=== PATIENT | female | born 1955 | race Two or more races ===

== ENCOUNTER → 2018-01-07 | Outpatient (CLI) | payer MEDICARE, MEDICAID ==
--- NOTE | 2018-01-07 16:46 | RAD ---
Examination: Ankle brachial index HISTORY: History of left leg pain COMPARISON: None available FINDINGS: The right brachial artery pressure is 119 mmg. The left brachial artery pressure is 105 mmHg. The right lower extremity arterial pressure is 124 mmHg , the left lower extremity arterial pressures 134 mmHg. The right ankle-brachial index is 1.0. The left ankle brachial index is 1.1. IMPRESSION: Normal ankle brachial indices. Electronically signed by: Cristian Gustafson MD (01/07/2018 4:42 PM) [id number]
== END | disposition home or self-care (01) ==
LOC: US 13:00
PROVIDERS: ATTEND Physician Assistant Medical
DX: M79.605 Pain in left leg (principal)
CPT/HCPCS: 93922

== ENCOUNTER → 2020-04-21 | Outpatient (CLI) | payer MEDICARE, MEDICAID ==
--- NOTE | 2020-04-21 14:54 | RAD ---
Examination: 1. Right wrist 3 views. 2. AP standing bilateral knees 3. Bilateral knees 2 views each INDICATION: Bilateral knee pain, right wrist pain. FINDINGS: Right wrist: 3 views of the right wrist show narrowing of the radiocarpal joint with dbce-zn-eonj contact and deformity to the radial metaphysis, suggesting an old, healed fracture. The ulnar styloid process is truncated and replaced by a circumscribed ossific density. Soft tissues unremarkable. Bilateral AP standing knees: There is near mbgw-yd-dsie contact between the tibia and femur in the medial compartment with osteophytic spurring on the medial femoral condyles present bilaterally. There is slight lateral listhesis of the proximal tibias relative to the distal femurs and mild varus deformity. Soft tissues show obesity but otherwise are unremarkable. Bilateral knees 2 views each: [place] and lateral views of the left knee show bulky osteophytic spurring on the medial femoral head and marked joint space narrowing both in the medial and patellofemoral compartments. There is evidence of an ossific density in the dorsal knee joint space that is equivocal for a loose body. No significant joint effusion. [place] and lateral views of the right knee show bulky osteophytic spurring on the medial femoral condyle and in the superior pole patella. No joint effusion or loose body suggested. IMPRESSION: 1. 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 2. Advanced multicompartmental degenerative changes in both knees affecting the medial and patellofemoral compartments the greatest extent with mild varus deformity bilaterally. Electronically signed by: Kirby Saucedo MD (04/21/2020 2:51 PM) [id number]
--- NOTE | 2020-04-21 14:54 | RAD ---
Examination: 1. Right wrist 3 views. 2. AP standing bilateral knees 3. Bilateral knees 2 views each INDICATION: Bilateral knee pain, right wrist pain. FINDINGS: Right wrist: 3 views of the right wrist show narrowing of the radiocarpal joint with leum-ib-jfiu contact and deformity to the radial metaphysis, suggesting an old, healed fracture. The ulnar styloid process is truncated and replaced by a circumscribed ossific density. Soft tissues unremarkable. Bilateral AP standing knees: There is near sznp-rq-qtlq contact between the tibia and femur in the medial compartment with osteophytic spurring on the medial femoral condyles present bilaterally. There is slight lateral listhesis of the proximal tibias relative to the distal femurs and mild varus deformity. Soft tissues show obesity but otherwise are unremarkable. Bilateral knees 2 views each: [place] and lateral views of the left knee show bulky osteophytic spurring on the medial femoral head and marked joint space narrowing both in the medial and patellofemoral compartments. There is evidence of an ossific density in the dorsal knee joint space that is equivocal for a loose body. No significant joint effusion. [place] and lateral views of the right knee show bulky osteophytic spurring on the medial femoral condyle and in the superior pole patella. No joint effusion or loose body suggested. IMPRESSION: 1. 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 2. Advanced multicompartmental degenerative changes in both knees affecting the medial and patellofemoral compartments the greatest extent with mild varus deformity bilaterally. Electronically signed by: Kirby Saucedo MD (04/21/2020 2:51 PM) [id number]
--- NOTE | 2020-04-21 14:54 | RAD ---
Examination: 1. Right wrist 3 views. 2. AP standing bilateral knees 3. Bilateral knees 2 views each INDICATION: Bilateral knee pain, right wrist pain. FINDINGS: Right wrist: 3 views of the right wrist show narrowing of the radiocarpal joint with zkpp-fm-wxlj contact and deformity to the radial metaphysis, suggesting an old, healed fracture. The ulnar styloid process is truncated and replaced by a circumscribed ossific density. Soft tissues unremarkable. Bilateral AP standing knees: There is near zgdl-ya-jmdu contact between the tibia and femur in the medial compartment with osteophytic spurring on the medial femoral condyles present bilaterally. There is slight lateral listhesis of the proximal tibias relative to the distal femurs and mild varus deformity. Soft tissues show obesity but otherwise are unremarkable. Bilateral knees 2 views each: [place] and lateral views of the left knee show bulky osteophytic spurring on the medial femoral head and marked joint space narrowing both in the medial and patellofemoral compartments. There is evidence of an ossific density in the dorsal knee joint space that is equivocal for a loose body. No significant joint effusion. [place] and lateral views of the right knee show bulky osteophytic spurring on the medial femoral condyle and in the superior pole patella. No joint effusion or loose body suggested. IMPRESSION: 1. 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 2. Advanced multicompartmental degenerative changes in both knees affecting the medial and patellofemoral compartments the greatest extent with mild varus deformity bilaterally. Electronically signed by: Kirby Saucedo MD (04/21/2020 2:51 PM) [id number]
== END | disposition home or self-care (01) ==
LOC: DXRAD 13:27
PROVIDERS: ATTEND Orthopaedic Surgery
DX: M17.0 Bilateral primary osteoarthritis of knee (principal); M21.831 Other specified acquired deformities of right forearm; M25.731 Osteophyte, right wrist; M77.8 Other enthesopathies, not elsewhere classified
CPT/HCPCS: 73110; 73560; 73565

== ENCOUNTER 2020-07-11 13:29 | Emergency (ER) | payer MEDICARE, MEDICAID ==
[~2020-07-11] VITALS: Ht 154.9 cm; Wt 154.0 kg
[2020-07-11 13:39] VITALS: BP 145/87
--- NOTE | 2020-07-11 13:44 | PHYS DOC ---
Adult General Chief Complaint Chief Complaint: UPPER EXTREMITY PAIN HPI HPI Patient is a 64-year-old female patient who presents to the ED today complaining of mild intermittent left shoulder pain that began on giving after she fell down one step. Patient denies any loss of consciousness. Denies hitting her head on the ground. She states the pain is throbbing. She states the pain is worse when she is laying on her shoulder at night. Denies any chest pain or shortness of breath. She states she was planning to follow-up with her orthopedic doctor but did not have any appointment right now. (TAHMINA JIANG APRN) Review of Systems Review of Systems Constitutional: Denies fever or chills [] Musculoskeletal: Reports left shoulder pain Integument: Denies rash or skin lesions [] Neurologic: Denies headache, focal weakness or sensory changes [] All other systems were reviewed and found to be within normal limits, except as documented in this note. (TAHMINA JIANG APRN) Allergies Allergies Allergies Coded Allergies Type Severity Reaction Last Updated Verified codeine Allergy Unknown 07/11/20 Yes (TAHMINA JIANG APRN) Physical Exam Physical Exam Constitutional: Well developed, well nourished, no acute distress, non-toxic appearance. [] Skin: Warm, dry, no erythema, no rash. [] Back: No tenderness, no CVA tenderness. [] Extremities: Left shoulder with no obvious deformity, no ecchymosis, full range of motion to the left shoulder. No tenderness on exam. Adequate radial, medial, ulnar sensation. Adequate abduction and abduction of the left upper extremity. +2 left radial pulse. Cap refill less than 2 seconds in left fingers Neurologic: Alert and oriented X 3, normal motor function, normal sensory function, no focal deficits noted. [] Psychologic: Affect normal, judgement normal, mood normal. [] (TAHMINA JIANG APRN) EKG EKG [] (TAHMINA JIANG APRN) Radiology/Procedures Radiology/Procedures []PROCEDURE: SHOULDER 2+V LEFT EXAM: 3 Views Left Shoulder DATE: 07/11/2020 1:40 PM INDICATION: Reason: fell pain / Spl. Instructions: / History: COMPARISON: No Prior FINDINGS: There is no evidence for acute fracture or dislocation. AC joint is congruent. Mild left AC joint degenerative changes are seen. Small glenoid rim osteophytes are also seen. Humeral head is not high riding. IMPRESSION: 1. No acute fracture or dislocation. 2. Mild AC joint and glenohumeral joint degenerative change. Electronically signed by: Jake Lazcano MD (07/11/2020 1:54 PM) [facility] DICTATED AND SIGNED BY: JAKE LAZCANO MD DATE: 07/11/20 1354 CC: [facility]; TAHMINA JIANG APRN; LIZZY JAIME ~MTH0 0 (TAHMINA JIANG APRN) Heart Score Risk Factors: Risk Factors: DM, Current or recent (<one month) smoker, HTN, HLP, family history of CAD, obesity. Risk Scores: Risk Factors: DM, Current or recent (<one month) smoker, HTN, HLP, family history of CAD, obesity. (TAHMINA JIANG APRN) Course & Med Decision Making Course & Med Decision Making Pertinent Labs and Imaging studies reviewed. (See chart for details) This is a 64-year-old female patient presenting to the ED today with left shoulder pain after falling on [place]. Patient x-rays interpreted by radiologist are negative for any acute findings, noted for DJD. Ice elevation encouraged. Follow-up with orthopedic doctor in the next 1 to 2 weeks. (TAHMINA JIANG APRN) Course & Med Decision Making The patient was seen and interviewed as well as examined at the bedside. The chart was reviewed. The case was discussed. Agree with the plan of care. Patient awake and alert on my assessment. No respiratory distress. Neurovascularly intact. (SHAW GUTIÉRREZ MD) Dragon Disclaimer Dragon Disclaimer This electronic medical record was generated, in whole or in part, using a voice recognition dictation system. (TAHMINA JIANG APRN) Departure Departure: Impression: Primary Impression: Fall down steps Additional Impression: Contusion of left shoulder Disposition: 01 DC HOME SELF CARE/HOMELESS Condition: STABLE Referrals: LIZZY JAIME (PCP) NELLIE JOHNSON MD follow up in one week Patient Instructions: Contusion, [id number]-[id number] Additional Instructions: You were evaluated in the emergency room for left shoulder pain, your left shoulder x-rays were negative for any acute findings, you were noted for arthritis in the left shoulder. To ice and elevate the extremity. Take the prescribed medication as ordered. Follow-up with the orthopedic doctor in the next 1 to 2 weeks Scripts Diclofenac Sodium (VOLTAREN) 100 Gm Gel..gram. 1 GM TP QID for pain for 30 Days, #1 EACH 0 Refills apply to affected area(s) Prov: TAHMINA JIANG KITA 07/11/20 Methylprednisolone (MEDROL) 4 Mg Tab.ds.pk 1 PKG PO UD, #1 PKG Prov: TAHMINA JIANG KITA 07/11/20 Problem Qualifiers Primary Impression: Fall down steps Encounter type: initial encounter Qualified Codes: W10.8XXA - Fall (on) (from) other stairs and steps, initial encounter Additional Impression: Contusion of left shoulder Encounter type: initial encounter Qualified Codes: S40.012A - Contusion of left shoulder, initial encounter GARDENIATAHMINA HOLDEN KITA Jul 11, 2020 13:44 SHAW GUTIÉRREZ MD Jul 11, 2020 14:09
--- NOTE | 2020-07-11 13:57 | RAD ---
EXAM: 3 Views Left Shoulder DATE: 07/11/2020 1:40 PM INDICATION: Reason: fell pain / Spl. Instructions: / History: COMPARISON: No Prior FINDINGS: There is no evidence for acute fracture or dislocation. AC joint is congruent. Mild left AC joint degenerative changes are seen. Small glenoid rim osteophytes are also seen. Humeral head is not high riding. IMPRESSION: 1. No acute fracture or dislocation. 2. Mild AC joint and glenohumeral joint degenerative change. Electronically signed by: Jake Figueroa MD (07/11/2020 1:54 PM) ROB
[2020-07-11] MEDS ORDERED: DICL100G18 TP (14:02)
[2020-07-11] MEDS ORDERED: METH4TAB2 PO (14:02)
== END 2020-07-11 14:08 | disposition home or self-care (01) ==
LOC: ER 13:29
DX: S40.012A Contusion of left shoulder, initial encounter (principal); Z88.5 Allergy status to narcotic agent; W10.8XXA Fall (on) (from) other stairs and steps, initial encounter; Y93.89 Activity, other specified; Y92.89 Other specified places as the place of occurrence of the external cause; Y99.8 Other external cause status
CPT/HCPCS: 73030; 99283

== ENCOUNTER → 2021-05-01 | Outpatient (CLI) | payer MEDICARE, MEDICAID ==
[~2021-05-01] MED LIST: DICL100G18 TP; METH4TAB2 PO
--- NOTE | 2021-05-02 09:41 | RAD ---
Three-view left shoulder radiographs 05/01/2021 CLINICAL HISTORY: Left shoulder pain. Two AP, a transscapular and axillary digital radiographs of the left shoulder were obtained. Comparis on study is dated 07/11/2020. These radiographs are limited due to underpenetrated technique and the patient's large body habitus. There is diffuse osteopeniaof the visualized bony structures. No fracture or dislocation of the left shoulder is definitely seen. Moderate degenerative changes are seen involving left AC joint and left glenohumeral joint. IMPRESSION: Degenerative changes are seen involving the left shoulder as discussed above. No fracture or dislocation of the left shoulder is seen. Electronically signed by: Jeromy Mcmahon MD (05/02/2021 9:38 AM) [id number]
--- NOTE | 2021-05-02 09:46 | RAD ---
Two view bilateral knee radiographs 05/01/2021 CLINICAL HISTORY: Bilateral knee pain. Two standing AP digital radiographs of both knees were obtained. Lateral and sunrise digital radiogra phs of both knees were obtained. There is diffuse osteopenia of the visualized bony structures. These radiographs are limited due to the patient's large body habitus. Severe degenerative changes are see n involving all 3 compartments of both knees. These consist of marked joint compartment narrowing, díaz bchondral sclerosis and associated osteophyte formation. The medial compartments of both knees are ob literated bilaterally with bone to bone contact. No fracture or dislocation of either knee is seen. IMPRESSION: Severe degenerative changes are seen involving all 3 compartments of both knees. No acute osseous abnormality is seen. Electronically signed by: Jeromy Mcmahon MD (05/02/2021 9:44 AM) [id number]
== END ==
LOC: RAD 14:00
PROVIDERS: ATTEND Physician Assistant
DX: M17.0 Bilateral primary osteoarthritis of knee (principal); M19.012 Primary osteoarthritis, left shoulder; M25.762 Osteophyte, left knee; M25.761 Osteophyte, right knee; M85.88 Other specified disorders of bone density and structure, other site
CPT/HCPCS: 73030; 73565; 73560-50